=== PATIENT | female | born 1965 | race Caucasian/White ===

== ENCOUNTER 2017-11-01 15:20 | Emergency (ER) | payer BC ==
[2017-11-01 15:29] VITALS: BP 149/101
--- NOTE | 2017-11-01 16:00 | RAD ---
INDICATION: Wrist pain after "trying to encourage are" COMPARISON: None. TECHNIQUE: 3 views right wrist. REPORT: The visualized bones are properly aligned and well corticated. The joint spaces are normal.There is no fracture, dislocation or other focal osseous abnormality. IMPRESSION: Normal radiograph of the right wrist. If the patient's symptoms persist, follow-up imaging is recommended.
--- NOTE | 2017-11-01 16:00 | RAD ---
INDICATION: Right hand and wrist pain after trying to and screw fracture or COMPARISON: Right wrist same date TECHNIQUE: 2 views were obtained. FINDINGS: There is no acute bony change. There is minor underlying osteoarthritis with interphalangeal and metacarpophalangeal joint space narrowing. The soft tissues are intact. IMPRESSION: NO ACUTE BONY FINDINGS.
--- NOTE | 2017-11-01 16:13 | UC ---
Fletcher Garrett Elizabeth, scribed for Savage Darnell MD on 11/01/17 at 1538 . Hand/Wrist HPI - HPI Summary HPI Summary: This patient is a 52 year old F presenting to [facility] with a chief complaint of sharp right wrist pain and right thumb since 2 weeks ago. The patient notes that the pain began after she twisted a knob of a propane tank. The patient rates the pain 4/10 in severity. Symptoms aggravated by movement. Symptoms alleviated by nothing. Patient reports her right wrist feels weak and is clicking. - History Of Current Complaint Chief Complaint: UCUpperExtremity Stated Complaint: RIGHT WRIST INJURY Hx Obtained From: Patient Onset/Duration: Sudden Onset, Lasting Weeks - 2 weeks, Still Present Severity Initially: Mild Severity Currently: Mild Pain Intensity: 4 Pain Scale Used: 0-10 Numeric Character Of Pain: Sharp Aggravating Factor(s): Movement Alleviating Factor(s): Nothing - Allergies/Home Medications Allergies/Adverse Reactions: Allergies Allergy/AdvReac Type Severity Reaction Status Date / Time azithromycin Allergy Intermediate Rash Verified 11/01/17 15:30 Home Medications: Home Medications Escitalopram Oxalate [Lexapro 10 mg] 10 mg PO BID 11/01/17 [History Confirmed ] Ranitidine TAB (NF) [Zantac TAB (NF)] 150 mg PO DAILY 11/01/17 [History Confirmed 11/01/17] PMH/Surg Hx/FS Hx/Imm Hx Endocrine History: Diabetes Other Endocrine History: type 2 diabetes Cardiovascular History: Hypertension - Surgical History Surgical History: None - Family History Known Family History: Positive: Cardiac Disease, Hypertension - Social History Alcohol Use: Occasionally Substance Use Type: None Smoking Status (MU): Never Smoked Tobacco Review of Systems Constitutional: Negative - NEGATIVE FEVER ENT: Negative - NEGATIVE EPISTAXIS Gastrointestinal: Negative - negative vomiting, negative nausea Motor: Weakness - in right wrist Musculoskeletal: Other: - pain in right wrist, pain in right thumb All Other Systems Reviewed And Are Negative: Yes Physical Exam - Summary Physical Exam Summary: VITAL SIGNS: Reviewed. GENERAL: Patient is a well-developed and nourished FEMALE who is lying comfortable in the stretcher. Patient is not in any acute respiratory distress. HEAD AND FACE: Normocephalic EYES: PERRLA, EOMI x 2. EARS: Hearing grossly intact. MOUTH: Oropharynx within normal limits. NECK: Supple, trachea is midline, no adenopathy, no JVD, no carotid bruit. CHEST: Symmetric, no tenderness at palpation LUNGS: Clear to auscultation bilaterally. No wheezing or crackles. CVS: Regular rate and rhythm, S1 and S2 present, no murmurs or gallops appreciated. ABDOMEN: Soft, non-tender. Bowel sounds are normal. No abdominal abnormal pulsations. EXTREMITIES: Full ROM in all major joints, no edema, no cyanosis or clubbing. Tenderness in the dorsal aspect of the right wrist NEURO: Alert and oriented x 3. No acute neurological deficits. Speech is normal and follows commands. SKIN: Dry and warm Triage Information Reviewed: Yes Vital Signs: Initial Vital Signs Temp 99.4 F 11/01/17 15:24 Pulse 72 11/01/17 15:24 Resp 18 11/01/17 15:24 BP 149/101 11/01/17 15:24 Pulse Ox 100 11/01/17 15:24 Vital Signs Reviewed: Yes Diagnostics - Radiology Right Hand XR Xray Interpretation: No Acute Changes - IMPRESSION: NO ACUTE BONY FINDINGS. Dr. Darnell has reviewed this report. Radiology Interpretation Completed By: Radiologist Right Wrist XR Xray Interpretation: No Acute Changes - IMPRESSION: Normal radiograph of the right wrist. Dr. Darnell has reviewed this report. Radiology Interpretation Completed By: Radiologist Hand/Wrist Course/Dx - Course Course Of Treatment: X-rays of the hand and wrist shows no fracture dislocations. Therefore the patient with the discharge home with follow-up with PCP. Patient will continue taking ibuprofen and Tylenol for the pain. If patient's pain is persistent the patient will be recommended to see an orthopedic doctor. - Differential Dx/Diagnosis Provider Diagnoses: Wrist and hand pain Discharge - Sign-Out/Discharge Documenting (check all that apply): Discharge/Admit/Transfer - Discharge Plan Condition: Stable Disposition: HOME Patient Education Materials: Arthralgia (ED) Referrals: Ngoc Matthews MD [Primary Care Provider] - Additional Instructions: Take medications as instructed Return to the if symptoms worsen - Billing Disposition and Condition Condition: STABLE Disposition: Home The documentation as recorded by the Fletcher luna Elizabeth accurately reflects the service I personally performed and the decisions made by Mann marr Walter, MD.
== END 2017-11-01 16:14 | disposition home or self-care (01) ==
LOC: UCEAST 15:20
DX: M25.531 Pain in right wrist (principal); M79.641 Pain in right hand; E11.9 Type 2 diabetes mellitus without complications; Z79.84 Long term (current) use of oral hypoglycemic drugs; I10 Essential (primary) hypertension; Z88.1 Allergy status to other antibiotic agents; Z82.49 Family history of ischemic heart disease and other diseases of the circulatory system
CPT/HCPCS: 99211; G0463

== ENCOUNTER 2018-07-05 05:33 | Day surgery (SDC) | payer BC ==
--- NOTE | 2018-06-28 11:29 | HP ---
HISTORY AND PHYSICAL: DATE OF OFFICE VISIT: 06/24/18 DATE OF SURGERY: 07/05/18 SURGEON: Danae Mendez MD * (DICTATED BY GRANT DUDLEY) PROCEDURE: Right knee arthroscopy with partial meniscectomy, possible chondroplasty, possible synovectomy. CHIEF COMPLAINT: Right knee pain. HISTORY OF PRESENT ILLNESS: Ms. Akers is a 52-year-old female with complaints of right knee pain. She has elected to proceed with a right knee arthroscopy scheduled for 07/05/18. PAST MEDICAL HISTORY: Diabetes, hypertension, mild asthma. PAST SURGICAL HISTORY: Oral surgery. CURRENT MEDICATIONS: 1. one a day. 2. Metformin 1000 mg twice a day. 3. Zantac 75 mg twice a day. 4. Lisinopril 10 mg daily. 5. Aspirin 81 mg daily. 6. Glucosamine chondroitin complex. 7. Jaki. ALLERGIES: ZITHROMAX. FAMILY HISTORY: Coronary artery disease, PE, and cancer. SOCIAL HISTORY: She is a 52-year-old female. She lives with her . She does not smoke or use drugs. She uses alcohol rarely. REVIEW OF SYSTEMS: A complete 14-point review of systems is reviewed with the patient. It is positive for diabetes and GERD. She denies history of DVT, PE, hepatitis, HIV, or anesthesia problems. PHYSICAL EXAMINATION GENERAL: She is well developed, well nourished, in no acute distress. VITAL SIGNS: She stands 67 inches tall, weighs 265 pounds, her blood pressure is 112/74, and her heart rate is 66. HEENT: Normocephalic and atraumatic. NECK: Supple. No palpable lymph nodes. PULMONARY: The lungs are clear to auscultation bilaterally. CARDIAC: Regular rate and rhythm. Strong S1 and S2. ABDOMEN: Soft, nontender, and nondistended. NEUROLOGIC: She is alert and oriented x3. MUSCULOSKELETAL: Right lower extremity, the skin is intact. There are no open wounds or abrasions. There is mild to moderate effusion. She has positive Apley's and Elgin's. Range of motion is 5 to 125 degrees with tenderness along the medial joint line. She is distally neurovascularly intact. ASSESSMENT AND PLAN: Ms. Akers is a 52-year-old female with continued complaints of right knee pain for over a year. An MRI shows a medial meniscus tear. She has elected to proceed with right knee arthroscopy with partial meniscectomy, possible chondroplasty, and possible synovectomy. The surgery is scheduled for 07/05/[address] Mendez discussed the risks and benefits of the surgery at today's visit and all of her questions were answered. She will follow up with Dr. Mendez 2 weeks after the surgery. GRANT DUDLEY [id number]/[facility] #: [id number] MTDDeonna
[~2018-07-05 05:33] MED LIST: Buffered Lidocaine 1% SYRIN* 1 ML/SYRINGE INTRADERM ONE
[2018-07-05] MEDS ORDERED: Famotidine IV* 10 MG/ML 2 ML (20 mg) IV ONE (06:00)
[2018-07-05] MEDS ORDERED: Lactated Ringers 1000 ML Bag* 1,000 ML IV SCH (06:00)
[2018-07-05] MEDS ORDERED: ceFAZolin 2 GM PREMIX in ORs 2 GM/50 ML BAG IVPB ONE (06:03)
[2018-07-05] MEDS ORDERED: methylPREDNISolone ACETATE 80* 80 MG/ML 1 ML VIAL ONE (06:52)
[2018-07-05] MEDS ORDERED: EPINEPHRINE 1 MG/ML 1 ML VIAL ONE (06:53)
[2018-07-05] MEDS ORDERED: Bupivacaine 0.5%* 50 ML VIAL ONE (06:53)
[2018-07-05] MEDS ORDERED: fentaNYL* 50 MCG/ML 2 ML VIAL (100 MCG VIAL) ONE ×3 (06:55→11:09)
[2018-07-05] MEDS ORDERED: Midazolam* 1 MG/ML 5 ML VIAL (5 MG) ONE (06:55)
[2018-07-05] MEDS ORDERED: Propofol* 10 MG/ML 20 ML BTL ONE (06:55)
[2018-07-05] MEDS ORDERED: Ondansetron INJ* 2 MG/ML VIAL ONE (06:55)
[2018-07-05] MEDS ORDERED: Dexamethasone IV* 4 MG/ML 1 ML (4 MG) ONE (06:55)
[2018-07-05] MEDS ORDERED: Ketorolac INJ* 30 MG/ML 1 ML VIAL ONE (06:55)
[2018-07-05] MEDS ORDERED: Lidocaine 2% PF * 5 ML VIAL ONE (06:55)
[2018-07-05] MEDS ORDERED: Chloroprocaine 2%* 20 ML VIAL ONE (07:55)
[2018-07-05] MEDS ORDERED: Naloxone* 0.4 MG/ML 1 ML VIAL IV PRN (08:09)
[2018-07-05] MEDS ORDERED: Ondansetron INJ* 2 MG/ML VIAL IV PRN (08:09)
[2018-07-05] MEDS ORDERED: oxyCODONE/Acetamin 5/325 MG* TAB ONE ×2 (10:11→11:09)
[2018-07-05] MEDS: fentaNYL* 50 MCG/ML 2 ML VIAL (100 MCG VIAL) IV PRN ×3 (10:13→10:38)
[2018-07-05] MEDS: oxyCODONE/Acetamin 5/325 MG* TAB PO PRN ×2 (10:13→11:10)
[2018-07-05 12:01] VITALS: BP 142/84
--- NOTE | 2018-07-05 21:58 | OP ---
DATE OF OPERATION: 07/05/18 [facility] DATE OF : 65 ATTENDING SURGEON: Danae Mendez MD. FINANCIAL ADVISOR TRAINEE: GRANT Liriano. Mr. Alvarez did help throughout the procedure with preparation of the leg, wound retraction, manipulation of the knee, and wound closure. ANESTHESIOLOGIST: Dr. Flor. ANESTHESIA: Spinal. PRE-OP DIAGNOSES: Right knee medial meniscal tear, moderate osteoarthritis. POST-OP DIAGNOSES: Right knee medial meniscal tear, lateral meniscus tear, [id number] osteoarthritis in all three compartments. OPERATIVE PROCEDURE: Right knee arthroscopy with partial medial meniscectomy, partial lateral meniscectomy and patellofemoral chondroplasty. COMPLICATIONS: None. ESTIMATED BLOOD LOSS: Less than 25 mL. SPECIMEN: None. BRIEF HISTORY/INDICATION: Ms. Akers is a 52-year-old female with recent onset of mechanical symptoms along the medial joint line. MRI confirmed a medial meniscal tear. She had some baseline arthritic changes. She failed conservative treatment and elected to undergo a right knee arthroscopy with partial meniscectomy, possible chondroplasty, possible synovectomy, possible plica excision. Informed consent was obtained from the patient. She understood the risks of surgery included, but were not limited to, bleeding, infection, damage to nearby structures, continued pain, need for further surgery , re-tear of the meniscus, progression of arthritis, anesthesia complications, stroke, heart attack, blood clot and . She wished to proceed. INTRAOPERATIVE FINDINGS: Intraoperatively, the patient was noted to have complex linear tear of the posterior medial meniscus in the red-white zone. She had a radial tear and several portions of the medial part of the lateral meniscus in the white-red zone. She was noted to have extensive arthritis in all three compartments. This was grade 3 and 4 Outerbridge cartilage changes in the medial, lateral and patellofemoral compartment. DESCRIPTION OF PROCEDURE: Ms. Akers was identified in the preanesthesia unit. Her right lower extremity was marked as the correct operative site. Informed consent was signed and placed in the chart. The patient was taken to the operating room and placed under spinal anesthesia. The patient's right lower extremity was prepped and draped in the usual sterile fashion. Preop time -out was made to correctly identify the patient, side, and site. Appropriate perioperative antibiotics were given within 1 hour of incision. A 0.5-cm standard anterolateral portal incision was made with a 10-blade and carried down through the capsule. Trocar was introduced. As soon as the light and water sources were turned on, there was immediate visualization of the suprapatellar pouch. A tour of the knee joint was performed. Suprapatellar pouch had no obvious abnormalities. Patellofemoral compartment immediately showed grade 3 and 4 Outerbridge cartilage changes with some cartilage spraying and flapping along the medial patellar facet. Medial gutters showed no loose body. Medial compartment showed grade 3 and 4 Outerbridge cartilage changes along the medial femoral condyle with exposed subchondral bone. There was a visible posterior medial meniscal tear. ACL and PCL appeared to be intact. The knee was placed meniscus showed some radial tears along the midportion. There was grade 3 and 4 Outerbridge cartilage changes with significant cartilage flaps along the lateral tibial plateau. Lateral gutters showed no obvious loose body. Under direct visualization, a medial portal incision was made with a #10 blade. The probe was introduced. A second tour of the knee joint was performed. There were no additional findings noted. Straight biter and shaver were used to perform partial medial meniscectomy. This was a linear tear involving the posterior one-third of the medial meniscus in the white-red zone. A smooth border was obtained. Further probing of the medial meniscus showed no additional tears. The knee was placed in a [id number] position. Radial tears along the midportion of the lateral meniscus in the white-red zone are carefully removed using the straight bitter and shaver. Next, the radiofrequency ablation wand was used to smooth any cartilage flapping along the medial femoral condyle. The radiofrequency ablation wand was then used to smooth cartilage spraying and flapping along the medial patellar facet. The knee was copiously irrigated with sterile saline. All instruments were removed. Incisions were closed using 3-0 nylon suture. Intra-articular injection of 80 mg Depo-Medrol and 6 cc of 0.25% Marcaine was placed in the knee joint. The patient's incisions were covered with Xeroform, 4x4s and Webril. Roque wrap and cold pack were placed over this. The patient's anesthesia was reversed without difficulty. She was taken to the PACU in stable condition. Intended weightbearing will be weightbearing as tolerated. Intended DVT prophylaxis will be aspirin. [id number]/[facility] #: [id number] [facility] HOSPITALDeonna
== END 2018-07-05 12:03 | disposition home or self-care (01) ==
LOC: OR 05:33
PROVIDERS: ATTEND Orthopaedic Surgery Adult Reconstructive Orthopaedic Surgery
DX: S83.241A Other tear of medial meniscus, current injury, right knee, initial encounter (principal); S83.281A Other tear of lateral meniscus, current injury, right knee, initial encounter; M17.11 Unilateral primary osteoarthritis, right knee; E11.9 Type 2 diabetes mellitus without complications; Z79.84 Long term (current) use of oral hypoglycemic drugs; I10 Essential (primary) hypertension; J45.909 Unspecified asthma, uncomplicated; X58.XXXA Exposure to other specified factors, initial encounter; Y92.9 Unspecified place or not applicable
CPT/HCPCS: A9270-GY; J0690; J1040; J1100; J1885; J2250; J2400; J2405; J2704; J3010